=== PATIENT | female | born 1990 | race Caucasian/White ===

== ENCOUNTER 2017-03-17 23:07 | Emergency (ER) | payer OTHER ==
[2017-03-18 04:00] VITALS: BP 140/90
== END 2017-03-18 04:00 | disposition home or self-care (01) ==
LOC: ED 23:07
DX: Z04.41 Encounter for examination and observation following alleged adult rape (principal); G43.909 Migraine, unspecified, not intractable, without status migrainosus
CPT/HCPCS: 87491; 87591

== ENCOUNTER 2017-03-24 21:07 | Emergency (ER) | payer OTHER ==
[~2017-03-24] VITALS: Ht 167.6 cm; Wt 110.7 kg
[2017-03-24 22:54] VITALS: BP 126/79
== END 2017-03-24 23:46 | disposition home or self-care (01) ==
LOC: ED 21:07
DX: A64 Unspecified sexually transmitted disease (principal); R03.0 Elevated blood-pressure reading, without diagnosis of hypertension; G43.909 Migraine, unspecified, not intractable, without status migrainosus; E28.2 Polycystic ovarian syndrome; Z04.41 Encounter for examination and observation following alleged adult rape
CPT/HCPCS: J0696

== ENCOUNTER 2017-10-25 07:01 | Emergency (ER) | payer OTHER ==
[2017-10-25 07:08] VITALS: BP 149/97
== END 2017-10-25 08:37 | disposition home or self-care (01) ==
LOC: ED 07:01
DX: J06.9 Acute upper respiratory infection, unspecified (principal); G43.909 Migraine, unspecified, not intractable, without status migrainosus

== ENCOUNTER 2017-11-20 11:22 | Emergency (ER) | payer OTHER ==
[~2017-11-20] VITALS: Ht 167.6 cm; Wt 112.0 kg
[2017-11-20 11:28] VITALS: Ht 167.6 cm; Wt 112.0 kg
[2017-11-20 14:18] LABS: BASOPHIL % 0.5 % (0-2); PLATELET COUNT 334 x10^3mcL (130-400); RED CELL DISTRIBUTION WIDTH 13.5 % (11.5-14.5)
[2017-11-20 14:31] LABS: CALCIUM 8.8 mg/dL (8.5-10.1); CARBON DIOXIDE 29.4 mmol/L (21-32); CHLORIDE SERUM 104 mmol/L (98-107); CREATININE SERUM 0.7 mg/dL (0.6-1.0); GFR1 > 60 mL/min; GLUCOSE SERUM 92 mg/dL (74-106); SODIUM SERUM 141 mmol/L (136-145)
[2017-11-20 14:36] LABS: ALBUMIN 3.6 g/dL (3.4-5.0); ALKALINE PHOSPHATASE 74 U/L (46-116); ALT/SGPT 25 U/L (14-59); AST/SGOT 15 U/L (15-37); BILIRUBIN TOTAL 0.3 mg/dL (0.20-1.00); TOTAL PROTEIN, SERUM 7.1 g/dL (6.4-8.2)
[2017-11-20 14:59] VITALS: BP 122/52
== END 2017-11-20 14:59 | disposition home or self-care (01) ==
LOC: ED 11:22
PROVIDERS: Emergency Medicine
DX: R55 Syncope and collapse (principal); R42 Dizziness and giddiness; R11.0 Nausea; G43.909 Migraine, unspecified, not intractable, without status migrainosus
CPT/HCPCS: J2405; J7030; J8597

== ENCOUNTER 2019-03-31 18:53 | Emergency (ER) | payer OTHER ==
[~2019-03-31] VITALS: Ht 167.6 cm; Wt 118.8 kg
[2019-03-31 19:13] VITALS: Ht 167.6 cm; Wt 118.8 kg
[2019-03-31 22:35] VITALS: BP 129/78
== END 2019-03-31 22:35 | disposition home or self-care (01) ==
LOC: ED 18:53
DX: T43.225A Adverse effect of selective serotonin reuptake inhibitors, initial encounter (principal); R11.0 Nausea; F45.8 Other somatoform disorders; E28.2 Polycystic ovarian syndrome; G43.909 Migraine, unspecified, not intractable, without status migrainosus; Z88.8 Allergy status to other drugs, medicaments and biological substances; Y92.89 Other specified places as the place of occurrence of the external cause
CPT/HCPCS: Q0162